=== PATIENT | male | born 1960 ===

== ENCOUNTER 2018-09-24 12:33 | Outpatient (CLI) | payer OTHER ==
[~2018-09-24] VITALS: Ht 177.8 cm; Wt 70.3 kg
== END 2018-09-24 12:45 | disposition home or self-care (01) ==
LOC: OFIC 805 12:33
DX: H91.8X2 Other specified hearing loss, left ear (principal)

== ENCOUNTER 2018-10-12 10:05 | Outpatient (CLI) | payer OTHER ==
[~2018-10-12] VITALS: Ht 152.4 cm; Wt 70.3 kg
== END 2018-10-12 10:20 | disposition home or self-care (01) ==
LOC: OFIC 805 10:05
DX: H91.22 Sudden idiopathic hearing loss, left ear (principal); H93.12 Tinnitus, left ear

== ENCOUNTER 2018-10-15 10:26 | Outpatient (CLI) | payer OTHER ==
[~2018-10-15] VITALS: Ht 152.4 cm; Wt 70.3 kg
== END 2018-10-15 10:45 | disposition home or self-care (01) ==
LOC: OFIC 805 10:26
DX: H91.22 Sudden idiopathic hearing loss, left ear (principal); H93.12 Tinnitus, left ear